=== PATIENT | female | born 1985 | race Caucasian/White ===

== ENCOUNTER 2016-06-13 00:38 | Inpatient (IN) | payer MEDICAID ==
[~2016-06-13] VITALS: Ht 167.6 cm; Wt 57.9 kg
[~2016-06-13 00:38] MED LIST: METO10TA92 PO
[2016-06-13 00:43] VITALS: BP 132/74; PULSE 122; RESP 20
[2016-06-13] MEDS ORDERED: PREN1TAB79 PO (00:46)
[2016-06-13 00:47] VITALS: Ht 167.6 cm; Wt 57.9 kg
[2016-06-13] MEDS ORDERED: METHYLERGONOVINE 0.2 MG INJ IM PRN (01:00)
[2016-06-13] MEDS ORDERED: IBUPROFEN 600 MG TAB PO PRN (01:00)
[2016-06-13] MEDS ORDERED: OXYTOCIN 30 UNITS/LR 500 ML IV SCH (01:00)
[2016-06-13] MEDS ORDERED: MISOPROSTOL 200 MCG TAB PR PRN (01:00)
[2016-06-13] MEDS ORDERED: BUTORPHANOL 2 MG INJ IV PRN ×2 (01:00)
[2016-06-13] MEDS ORDERED: LIDOCAINE 1% (MPF) 30 ML INJ INJ PRN (01:00)
[2016-06-13] MEDS ORDERED: OXYTOCIN 30 UNITS/LR 500 ML IV PRN (01:00)
[2016-06-13] MEDS ORDERED: CARBOPROST 250 MCG INJ IM PRN (01:00)
[2016-06-13] MEDS ORDERED: ACETAMINOPHEN/CODEINE #3 TAB PO PRN ×3 (01:00→13:00)
--- NOTE | 2016-06-13 01:27 | TRIAGE ---
OB Triage Datetime Report Generated by CPN: 06/13/2016 01:27 Datetime: 06/13/2016 00:55 Vaginal Exam Dilatation (cms): 3.5 Effacement (%): 80 Station: -2 Exam By: VENKATA Hoang RN Membrane Status: Intact Vaginal Bleeding: None Cervix, Consistency: Soft Cervix, Position: Midposition Datetime: 06/13/2016 00:48 Time of Arrival: 06/13/2016 00:31 EGA: 39.2 Arrived By: Ambulatory Arrived From: Home Chief Complaint: CONTRACTIONS Movement: Present Contractions: Regular Time Contractions Began: 06/12/2016 21:00 Contractions: Q5MIN PER PT Rupture of Membranes: Denies Vaginal Bleeding: None Vaginal Discharge: Denies Recent Sexual Intercouse: Denies Abdominal Trauma: Not Applicable Patient Complaints: Contractions Time Provider Notified: 06/13/2016 00:57 Provider Notified: REFATOUMATAE Initial Plan: EFM X2, SVE, DR. MARINO OFF TO LABORIST Datetime: 06/13/2016 00:43 Stage of : OB Triage Assessment Type: Triage Maternal Assessment Level of Consciousness: Fully Conscious DTR's/Clonus: DTRs 2+; No Clonus Headache: Denies Blurred Vision: No Respiratory Effort: Unlabored; Regular Rhythm; Equal Expansion Breath Sounds, Left: Clear and Equal Breath Sounds, Right: Clear and Equal Nausea/Vomiting: Denies RUQ Epigastric Pain: Denies Lower Extremities Edema: None Degree: None Upper Extremities Edema: None Degree: None Facial Edema: None Temperature Route: Oral Fall Risk Assessment History of Falling: (0) No Secondary Diagnosis: (0) No Ambulatory Aid: (0) Bedrest/Nurse Assist IV Therapy: (0) No Gait: (0) Normal/Bedrest/Immobile Mental Status: (0) Oriented to Own Ability Fall Score: 0 Fall Risk Score Definition: No Risk: No action required Pain Assessment Pain Scale: 5 Pain Presence: Intermittent Pain Type: Contraction Pain Location: Abdomen Pain Relief Measures: Comfort Measures Datetime: 06/13/2016 00:42 Labor Evaluation Monitor Mode: External (Annotations: APPLIED) Heart Rate Monitor Mode: External US (Annotations: APPLIED)
[2016-06-13] MEDS: LACTATED RINGER'S 1,000 ML IV PRN (01:43)
[2016-06-13] MEDS ORDERED: FENTAnyl 2MCG/ML-ROPIV 0.2% 100 ML ONE (02:20)
[2016-06-13 02:37] LABS: INR 0.92; PARTIAL THROMBOPLASTIN TIME 24.2 Sec (25.0-35.0); PROTIME 12.4 Sec (12.2-14.2)
[2016-06-13] MEDS: LACTATED RINGER'S 1,000 ML IV SCH ×2 (02:38→09:07)
[2016-06-13 03:15] LABS: WHITE BLOOD COUNT 16.9 10^3/ul (4.8-10.8)
[2016-06-13 03:16] LABS: HEMATOCRIT 44.2 % (37.0-47.0); HEMOGLOBIN 15.1 g/dl (12.0-16.0); LYMPHOCYTES % 5.5 % (15.0-51.0); MEAN CORPUSCULAR HEMOGLOBIN 31.1 pg (29.0-33.0); MEAN CORPUSCULAR HGB CONC 34.2 g/dl (32.0-37.0); MEAN CORPUSCULAR VOLUME 90.9 fl (82.0-101.0); MEAN PLATELET VOLUME 12.1 fl (7.4-10.4); MONOCYTES % 5.3 % (0.0-11.0); PLATELET COUNT 185 10^3/UL (140-440); RED BLOOD COUNT 4.86 10^6/ul (4.20-5.40)
[2016-06-13 03:17] LABS: BASOPHIL # 0.1 10^3/ul (0.0-0.1); BASOPHILS % 0.4 % (0.0-2.0); EOSINOPHILS % 0.1 % (0.0-7.0); LYMPHOCYTES # 0.9 10^3/ul (0.8-2.9); MONOCYTE # 0.9 10^3/ul (0.3-0.9); NEUTROPHIL # 14.9 10^3/ul (1.6-7.5)
[2016-06-13] MEDS ORDERED: NALOXONE (0.4 MG/ML) INJ IV PRN (03:30)
[2016-06-13] MEDS ORDERED: FENTAnyl 2MCG/ML-ROPIV 0.2% 100 ML BAG EPI SCH (03:30)
[2016-06-13] MEDS ORDERED: CEFAZOLIN 2 GM/50 ML (PMX) 50 ML IVPB STA (09:33)
[2016-06-13] MEDS ORDERED: ACETAMINOPHEN 325 MG TAB PO STA (09:34)
[2016-06-13] MEDS: OXYTOCIN 30 UNITS/LR 500 ML IV SCH ×4 (10:31→18:00)
[2016-06-13] MEDS ORDERED: OXYCODONE/ASPIRIN (4.88/325) TAB PO PRN ×2 (13:00)
[2016-06-13] MEDS ORDERED: DIBUCAINE 1% 30 GM OINT PR PRN (13:00)
[2016-06-13] MEDS ORDERED: ACETAMINOPHEN 325 MG TAB PO PRN (13:00)
[2016-06-13] MEDS ORDERED: ONDANSETRON 4 MG INJ IV PRN (13:00)
[2016-06-13] MEDS ORDERED: LANOLIN 7 GM TUBE TOP PRN (13:00)
[2016-06-13] MEDS ORDERED: WITCH HAZEL/GLYCERIN PAD PR PRN (13:00)
[2016-06-13] MEDS ORDERED: BENZOCAINE 20% 56 ML SPRAY TOP PRN (13:00)
[2016-06-13 14:30] VITALS: BP 111/68; PULSE 87; RESP 18
[2016-06-13 16:00] VITALS: BP 136/77; PULSE 88; RESP 18
--- NOTE | 2016-06-13 17:38 | HP ---
Date/Time of Note Date/Time of Note DATE: 06/13/16 TIME: 17:32 OB - History Hx of Present Free Text/Dictation This is a 30 years old female 2 para 1 EDC June 18, 2016 admitted to [facility] at 39 weeks and 2 days of in labor, admitting pelvic examination and assessments as follow temperature 99 heart rate 102 respiration 18 and blood pressure 118/66 ,pelvic examination cervix 4-5 cm 80% effaced vertex presentation at -2 station membranes intact contractions less than 5 minutes apart heart category 2 Chief Complaint: labor contractions Estimated Due Date: Jun 18, 2016 : 2 Para: 1 Care: Good Care Obstetrical Complications: None Medical Complications: None Past Family/Social History * Past Medical, Surgical, Family and Obstetric Histories reviewed from chart. Rubella: immune RPR/VDRL: Negative GBS Status: Negative HBsAG: Negative OB Admission Exam Vital Signs Vital Signs Vital Signs Date Time Temp Pulse Resp B/P Pulse Ox O2 Delivery O2 Flow Rate FiO2 06/13/16 16:00 98.3 88 18 136/77 Room Air Last 72 hours Lab Results CBC & BMP 06/13/16 01:40 SUNNY MARINO MD Jun 13, 2016 17:38
--- NOTE | 2016-06-13 17:42 | LDN ---
Date/Time of Note Date/Time of Note DATE: 06/13/16 TIME: 17:38 Delivery Summary Normal spontaneous vaginal delivery of a baby boy from TARSHA position shoulder's delivered with no difficulty rest of the baby's body followed cord clamped after stopped pulsation, placenta spontaneous expulsion inspected complete blood loss 200 mL Placenta Delivered: Spontaneously Meconium: none Perineum intact?: Yes Anesthesia type: Epidural Sponge & Needle done & correct: Yes All needle counts correct: Yes Problems: SUNNY MARINO MD Jun 13, 2016 17:41
[2016-06-13] MEDS: IBUPROFEN 600 MG TAB PO SCH ×2 (18:01→23:58)
[2016-06-13] MEDS: PIPER-TAZO 3.375 GM IV (PMX) 100 ML IVPB SCH ×2 (18:57→23:58)
[2016-06-13 19:50] VITALS: BP 119/79; PULSE 86; RESP 18
[2016-06-13] MEDS: SENNA/DOCUSATE NA (8.6MG/50MG) TAB PO SCH (20:48)
[2016-06-13 22:30] VITALS: PULSE 69
[2016-06-14] VITALS: BP 120/69; RESP 18
[2016-06-14] MEDS: LACTATED RINGER'S 1,000 ML IV PRN (02:31)
[2016-06-14 04:00] VITALS: BP 100/64; PULSE 75; RESP 18
[2016-06-14] MEDS: PIPER-TAZO 3.375 GM IV (PMX) 100 ML IVPB SCH ×4 (05:40→23:54)
[2016-06-14] MEDS: IBUPROFEN 600 MG TAB PO SCH ×4 (05:41→23:55)
[2016-06-14 08:40] VITALS: BP 117/71; PULSE 77; RESP 20
[2016-06-14 09:55] LABS: BASOPHIL # 0.1 10^3/ul (0.0-0.1); BASOPHILS % 0.6 % (0.0-2.0); EOSINOPHILS # 0.3 10^3/ul (0.0-0.5); EOSINOPHILS % 2.5 % (0.0-7.0); HEMATOCRIT 34.5 % (37.0-47.0); HEMOGLOBIN 11.8 g/dl (12.0-16.0); LYMPHOCYTES # 1.6 10^3/ul (0.8-2.9); MEAN CORPUSCULAR HEMOGLOBIN 31.5 pg (29.0-33.0); MEAN CORPUSCULAR HGB CONC 34.1 g/dl (32.0-37.0); MEAN CORPUSCULAR VOLUME 92.5 fl (82.0-101.0); MEAN PLATELET VOLUME 9.4 fl (7.4-10.4); MONOCYTE # 0.9 10^3/ul (0.3-0.9); MONOCYTES % 8.4 % (0.0-11.0); NEUTROPHIL # 7.9 10^3/ul (1.6-7.5); NEUTROPHILS % 73.5 % (39.0-77.0); PLATELET COUNT 122 10^3/UL (140-440); RED BLOOD COUNT 3.73 10^6/ul (4.20-5.40); RED CELL DISTRIBUTION WIDTH 13.1 % (11.5-14.5); UNCORRECTED WBC 10.8 10^3/ul (4.8-10.8); WHITE BLOOD COUNT 10.8 10^3/ul (4.8-10.8)
[2016-06-14 10:13] LABS: CONDITION 1
[2016-06-14] MEDS: SENNA/DOCUSATE NA (8.6MG/50MG) TAB PO SCH ×2 (10:21→20:47)
[2016-06-14 12:00] VITALS: BP 100/51; PULSE 80; RESP 18
--- NOTE | 2016-06-14 13:10 | PN ---
Date/Time of Note Date/Time of Note DATE: 06/14/16 TIME: 13:07 OB Subjective Subjective Subjective Vital signs stable afebrile she has been afebrile as of yesterday her WBC down from 16,000-10.800 resting no complaint of abdominal pain or pelvic pain abdomen soft uterus firm lochia normal extremity the antibiotic will be discontinued before patient discharge on June 15 SUNNY MARINO MD Jun 14, 2016 13:10
[2016-06-14 16:45] VITALS: BP 104/56; PULSE 79; RESP 20
[2016-06-15 04:18] VITALS: BP 110/68; PULSE 74; RESP 19
[2016-06-15] MEDS: IBUPROFEN 600 MG TAB PO SCH (05:29)
[2016-06-15] MEDS: PIPER-TAZO 3.375 GM IV (PMX) 100 ML IVPB SCH (05:30)
[2016-06-15 08:19] VITALS: BP 121/74; PULSE 77; RESP 20
[2016-06-15] MEDS ORDERED: MEASLES,MUMPS,RUBELLA VACCINE INJ SC* ONE (09:00)
--- NOTE | 2016-06-15 12:34 | PD.PPDC ---
DRAPERY HAND Discharge Instruction Condition Patient Condition: Good Activity/Restrictions Activity: Normal Activity Restrictions: No Exercising Follow-up Follow-up with Physician: 2, Week/Weeks Return to clinic for [facility] [employer] Instructions: Fever greater than 101 Worsening abdominal pain Excessive Vaginal Bleeding More than 2 pads per hour Unable to tolerate diet SUNNY MARINO MD Jun 15, 2016 12:34
--- NOTE | 2016-06-15 12:36 | DS ---
Date/Time of Note Date/Time of Note DATE: 06/15/16 TIME: 12:34 Obstetrical Discharge Record Final Diagnosis Final Diagnosis: Term delivered Vaginal Delivery Obstetrical Delivery: Spontaneous Condition on Discharge Physical Assessment Last Vitals: Vital signs stable, afebrile, abdomen soft uterus firm lochia normal extremity normal patient discharged home to recommendation follow-up 2 weeks [facility] Voiding: Yes Bowel Movement: Yes Breast: Soft, non-tender, Filling Fundus: Firm Calf Tenderness: No Patient Condition: Good SUNNY MARINO MD Jun 15, 2016 12:36
== END 2016-06-15 14:00 | disposition home or self-care (01) | DRG 775 ==
LOC: OBT 00:38 → L-D 00:40 → OBT 00:57 → PP1 12:31
PROVIDERS: ADMIT Obstetrics & Gynecology; ATTEND Obstetrics & Gynecology
PROC: 10E0XZZ Delivery of Products of Conception, External Approach (ICD-10-PCS; principal; 2016-06-13)
DX: O80 Encounter for full-term uncomplicated delivery (principal); Z37.0 Single live birth; Z3A.39 39 weeks gestation of pregnancy
CPT/HCPCS: 62319; 85025; 85610; 85730; 86592; 86900; 86901; 87081; 87086; G0463; J0690; J2543; J2590; J3010; J7120